=== PATIENT | male | born 1950 | race Caucasian/White ===

== ENCOUNTER → 2019-01-28 | Outpatient (CLI) | payer MEDICARE ==
[~2019-01-28] VITALS: Ht 185.4 cm; Wt 117.0 kg
[~2019-01-28] MED LIST: CATHETER FLUSH 10 ML SYR IV PRN; REGADENOSON 0.4 MG/5 ML SYR (LEXISCAN) IV ONE
[2019-01-28 09:44] VITALS: BP 162/101
== END ==
LOC: CARD 08:03
PROVIDERS: ATTEND Internal Medicine Interventional Cardiology
DX: R55 Syncope and collapse (principal); R06.02 Shortness of breath; E11.9 Type 2 diabetes mellitus without complications; I10 Essential (primary) hypertension; E66.9 Obesity, unspecified
CPT/HCPCS: 78452; 93017

== ENCOUNTER 2019-03-01 08:22 | Outpatient (RCR) | payer MEDICARE | END 2019-05-30 | disposition home or self-care (01) | LOC: CARD 08:22 | PROVIDERS: ATTEND Internal Medicine Interventional Cardiology | DX: R55 Syncope and collapse (principal); R00.2 Palpitations; I49.9 Cardiac arrhythmia, unspecified ==